=== PATIENT | female | born 1955 | race Caucasian/White ===

== ENCOUNTER 2019-07-11 18:39 | Emergency (ER) | payer BC ==
[2019-07-11] MEDS: KETOROLAC 15 MG INJ IM (20:56)
== END 2019-07-11 21:53 | disposition home or self-care (01) ==
LOC: E/R 18:39
DX: S06.0X0A Concussion without loss of consciousness, initial encounter (principal); W18.39XA Other fall on same level, initial encounter; Y92.9 Unspecified place or not applicable; Z85.44 Personal history of malignant neoplasm of other female genital organs
CPT/HCPCS: 70450; 72125; 96372; 99285-25